=== PATIENT | male | born 1975 | race Two or more races ===

== ENCOUNTER → 2016-12-20 | Outpatient (REF) | payer OTHER ==
[2016-12-20 22:12] LABS: #IMMOTILE SPERM COUNTED 0; #MOTILE SPERM COUNTED 0; % MOTILITY 0 (> 25%); TOTAL # SPERM COUNTED 0 M/ml
== END ==
LOC: M SMT 16:21
PROVIDERS: ATTEND Nurse Practitioner Women's Health
DX: N46.029 Azoospermia due to other extratesticular causes (principal)